=== PATIENT | male | born 1970 | race Caucasian/White ===

== ENCOUNTER 2023-09-07 10:41 | Outpatient (CLI) | payer OTHER, SELFPAY ==
--- NOTE | ~2023-09-07 | US_ITS ---
EXAMINATION: US scrotum doppler DATE: 09/07/2023 11:27 INDICATION: Right testicular pain, unspecified. TECHNIQUE: Grayscale and Doppler ultrasound images of the testes were obtained. COMPARISON: None. FINDINGS: The right testis measures 4.8 x 2.6 x 3.0 cm. The left testis measures 4.8 x 2.3 x 2.9 cm. There is normal vascular flow to both testes. The right epididymis demonstrates increased vascular fl ow, consistent with epididymitis. The left epididymis is normal with normal vascular flow. There is n o varicocele or hydrocele. There is a 6 mm scrotolith on the right. IMPRESSION: 1. Right-sided epididymitis. Reviewed, dictated and finalized at location A.
== END 2023-09-07 10:42 ==
PROVIDERS: PCP Family Medicine; Visit Provider Family Medicine
DX: N50.819 Testicular pain, unspecified (principal); N45.1 Epididymitis
CPT/HCPCS: 76870; 93976

== ENCOUNTER 2023-11-22 14:50 | Outpatient (CLI) | payer OTHER, SELFPAY ==
--- NOTE | ~2023-11-22 | XR_ITS ---
Lumbosacral Spine: AP, oblique, and lateral views Clinical History: Pain Findings: The normal lordotic curve is maintained. There is mild chronic anterior wedging deformity o f T12 and L1.. The intervertebral disc spaces are preserved. Moderate facet arthropathy. The sacroil iac joints are normally outlined. 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 Moderate facet arthropathy. Reviewed, dictated and finalized at location . 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 Moderate facet arthropathy.
== END 2023-11-22 14:51 ==
LOC: GOSHIMG 14:51
PROVIDERS: PCP Family Medicine; Visit Provider Family Medicine
DX: M54.50 Low back pain, unspecified (principal)
CPT/HCPCS: 72110

== ENCOUNTER 2023-11-24 08:21 | Outpatient (CLI) | payer OTHER, SELFPAY ==
[2023-11-24 14:31] LABS: Hematocrit 46.1 % (42.0-52.0); Hemoglobin 15.7 g/dL (14.0-18.0); Mean Corpuscular HGB Conc 34.1 g/dl (32-36); Mean Platelet Volume 10.6 fl (7.4-10.4); Platelet Count Result 222 k/mm3 (150-375); Red Blood Count 5.24 M/mm3 (4.6-6.20); Red Cell Distribution Width 12.5 % (11.5-14.5); White Blood Count 6.6 K/mm3 (4.5-10.0)
[2023-11-24 15:35] LABS: Alanine Aminotransferase 36 U/L (6-50); Albumin Level 4.6 g/dL (3.5-5.1); Alkaline Phosphatase 72 U/L (38-126); Anion Gap 8 mmol/L (4-12); Aspartate Amino Transferase 43 U/L (17-59); Bilirubin,Total 0.7 mg/dL (0.2-1.3); Blood Urea Nitrogen 17 mg/dL (9-20); Calcium 9.7 mg/dL (8.4-10.2); Carbon Dioxide 28 mmol/L (22-30); Chloride 102 mmol/L (98-107); Cholesterol 291 mg/dL (0-200); Estimated Glomerular Filt Rate > 60; Glucose 132 mg/dL (65-110); HDL Direct 41 mg/dL; Potassium 4.5 mmol/L (3.4-5.0); Sodium 138 mmol/L (137-145); Triglycerides 522 mg/dL (<150)
[2023-11-24 15:46] LABS: LDL Cholesterol Direct 107 mg/dL
[2023-11-24 18:08] LABS: Hemoglobin A1C 6.7 % (<5.7)
== END 2023-11-24 08:22 | disposition home or self-care (01) ==
PROVIDERS: PCP Family Medicine; Visit Provider Family Medicine
DX: E11.9 Type 2 diabetes mellitus without complications (principal); E66.9 Obesity, unspecified; M19.90 Unspecified osteoarthritis, unspecified site; Z79.899 Other long term (current) drug therapy
CPT/HCPCS: 36415; 80053; 80061; 83036; 84443; 85027

== ENCOUNTER 2024-04-20 07:58 | Outpatient (CLI) | payer OTHER, SELFPAY ==
[2024-04-20 14:31] LABS: Hematocrit 46.7 % (42.0-52.0); Mean Corpuscular HGB Conc 34.3 g/dl (32-36); Mean Corpuscular Hemoglobin 30.6 pg (26-34); Mean Corpuscular Volume 89.3 fl (80-100); Mean Platelet Volume 10.6 fl (7.4-10.4); Platelet Count Result 240 k/mm3 (150-375); Red Blood Count 5.23 M/mm3 (4.6-6.20); Red Cell Distribution Width 12.3 % (11.5-14.5); White Blood Count 7.7 K/mm3 (4.5-10.0)
[2024-04-20 15:50] LABS: Alanine Aminotransferase 44 U/L (6-50); Albumin Level 4.7 g/dL (3.5-5.1); Alkaline Phosphatase 78 U/L (38-126); Anion Gap 9 mmol/L (4-12); Aspartate Amino Transferase 36 U/L (17-59); Bilirubin,Total 0.6 mg/dL (0.2-1.3); Blood Urea Nitrogen 19 mg/dL (9-20); Calcium 9.4 mg/dL (8.4-10.2); Carbon Dioxide 30 mmol/L (22-30); Chloride 99 mmol/L (98-107); Cholesterol 245 mg/dL (0-200); Estimated Glomerular Filt Rate > 60; Glucose 181 mg/dL (65-110); HDL Direct 45 mg/dL; Potassium 4.5 mmol/L (3.4-5.0); Sodium 138 mmol/L (137-145); Triglycerides 480 mg/dL (<150)
[2024-04-20 16:02] LABS: LDL Cholesterol Direct 78 mg/dL
[2024-04-20 16:22] LABS: Prostate Specific Antigen 1.7 ng/mL (< OR = 4.0)
[2024-04-20 17:26] LABS: Hemoglobin A1C 7.5 % (<5.7)
== END 2024-04-20 07:59 | disposition home or self-care (01) ==
LOC: ANHGOSHLAB 07:59
PROVIDERS: PCP Family Medicine; Visit Provider Family Medicine
DX: E11.9 Type 2 diabetes mellitus without complications (principal); E66.9 Obesity, unspecified; E78.5 Hyperlipidemia, unspecified; Z12.5 Encounter for screening for malignant neoplasm of prostate; Z79.899 Other long term (current) drug therapy
CPT/HCPCS: 36415; 80053; 80061; 83036; 84153; 84443; 85027; G0103

== ENCOUNTER 2024-08-24 07:56 | Outpatient (CLI) | payer OTHER, SELFPAY ==
--- OUTSIDE RECORDS SUMMARY | 2024-08-24 08:06 | XMS_ITS | Data Portability ---
Author Organization [facility], Main Office Address [address] [place] [address] Assessment No assessment recorded. Plan of Treatment Reminders Order Date Submit Date Provider Last Modified By Organization Details Last Modified Time Details Appointments None recorded. Lab CBC w/ auto diff 2023 024 [email or web address] Not available 4 08:37:23 HbA1c (hemoglobin A1c), blood 2023 024 [email or web address] Not available 4 08:37:23 BMP, serum or plasma 2023 024 [email or web address] Not available 4 08:37:23 lipid panel, serum 2023 024 [email or web address] Not available 4 08:37:23 hepatic function panel, serum 2023 024 [email or web address] Not available 4 08:37:23 Referral physical therapist referral - cervical traction and modalities 2022 023 [email or web address] [facility], [address], [place], [address], 3 15:32:56 Procedures None recorded. Surgeries None recorded. Imaging XR, shoulder, 2 or more view 2022 023 [email or web address] [facility], [address], [place], [address], 3 15:45:58 Medication Orders sertraline 50 mg tablet 2023 024 [facility] #[id number], [address] [facility] [address] [place] [address], [id number], 4 12:27:48 Ozempic 1 mg/dose (4 mg/3 mL) subcutaneou s pen injector [address] [facility] #[id number], [address] [place] [address], [id number], 4 11:36:16 Ozempic 0.25 mg or 0.5 mg (2 mg/1.5 mL) subcutaneou s pen injector [address] [facility]41600, [address], [id number], 4 08:53:34 Medrol (Jay) 4 mg tablets in a dose pack [address] [employer] [facility] #00143, [address] [facility] [address] [place] [address], [id number], 3 08:06:52 Patient TargetsNo targets recorded. Patient InstructionsNo instructions recorded. Reason for Referral Physical Therapist Referral for Cervical radiculopathy cervical traction and modalities Referring Physician: Cj Quarles, Orthopedic Surgery, Encounter Date: 12/21/2022 Results Created Date Observation Date Name Description Value Unit Range Abnormal Flag Note LastModifiedBy Organization Detail LastModifiedTime 05/22/2005/22/2023 LIPID PANEL , [place] cholesterol, total 367 mg/dL <200 high Not Available [facility] [address] [place], [address], 05/22/2023 06:29:21 05/22/20 23 05/22/2023 LIPID PANEL , [place] HDL cholesterol 43 mg/dL > or = 40 normal Not Available [facility] [address] [address] [place], [address], 05/22/2023 06:29:21 05/22/20 23 05/22/2023 LIPID PANEL , [place] triglyceride s 746 mg/dL <150 high If a non-f astin g speci men was colle cted, consi greg repea t trigl yceri de testi ng on a fasti ng speci men if clini kaveh indic ated. Bryn humphrey et al. J. of Clin. Lipid ol. 2015; 9:129 -169. There is incre ased risk of pancr eatit is when the trigl yceri de brandon ntrat ion is very high (> or = 500 mg/dL , espec ially if > or = 1000 mg/dL ). Bryn humphrey et al. J. of Clin. Lipid ol. 2015; 9:129 -169. Not Available [facility] [address] [address] [address], [place], [address], 05/22/2023 06:29:21 05/22/20 23 05/22/2023 LIPID PANEL , [place] LDL-choleste rol mg/dL _(alissa c) LDL thomas stero l not calcu lated . Trigl yceri de level s great er than 400 mg/dL inval idate calcu lated LDL resul ts. Refer ence range : <100 Carmen able range <100 mg/dL for prima ry preve ntion ; <70 mg/dL for patie nts with CHD or diabe tic patie nts with > or = 2 CHD risk facto rs. LDL-C is now calcu lated using the Krissy n-Hop kins calcu latio n, which is a valid ated novel metho d provi peyman jesus r accur acy than the Fried na equat ion in the estim ation of LDL-C . Krissy sewell SS et al. KAYCEE. 2013; 310(1 9): 2061- 2068 (http ://ed ucati on.Qu estDi ACKme Networksos tics. com/f aq/FA Q164) Not Available [address] [address] [place], [address], 05/22/2023 06:29:21 05/22/20 23 05/22/2023 LIPID PANEL , [place] chol/HDLC ratio 8.5 (calc ) <5.0 high Not Available [facility] [address] [address] [place], [address], 05/22/2023 06:29:21 05/22/20 23 05/22/2023 LIPID PANEL , [place] non HDL cholesterol 324 mg/dL _(alissa c) <130 high Non-H DL level > or = 220 is very high and may indic ate [place] ic famil ial hyper thomas stero lemia (FH). Clini alissa asses sment and measu remen t of blood lipid level s shoul d be consi dered for all first -degr ee relat vaishnavi of patie nts with an FH diagn osis. For patie nts with diabe phillip plus 1 major ASCVD risk facto r, treat ing to a non-H DL-C goal of <100 mg/dL (LDL- C of <70 mg/dL ) is consi dered a thera peuti c optio n. Not Available [address] [address] [place], [address], 05/22/2023 06:29:21 05/22/20 23 05/22/2023 BASIC METAB OLIC PANEL glucose 248 mg/dL 65-99 high Fasti ng refer ence inter kassidy For someo ne witho ut known diabe phillip, a gluco se value >125 mg/dL indic ates that they may have diabe phillip and this shoul d be confi rmed with a follo w-up test. Not Available [facility] [address] [address] [place], [address], 05/22/2023 06:29:23 05/22/20 23 05/22/2023 BASIC METAB OLIC PANEL urea nitrogen (BUN) 23 mg/dL 7-25 normal Not Available [facility] [address] [address] [place], [address], 05/22/2023 06:29:23 05/22/20 23 05/22/2023 BASIC METAB OLIC PANEL creatinine 1.04 mg/dL 0.70-1 .30 normal Not Available [address], [address], 05/22/2023 06:29:23 05/22/20 23 05/22/2023 BASIC METAB OLIC PANEL eGFR 87 mL/mi n/1.7 3m2 > or = 60 normal Not Available [address], [address], 05/22/2023 06:29:23 05/22/20 23 05/22/2023 BASIC METAB OLIC PANEL BUN/creatini ne ratio SEE NOTE: (calc ) 6-22 Not Repor lyudmila: BUN and Creat inine are withi n refer ence range . Not Available [address], [address], 05/22/2023 06:29:23 05/22/20 23 05/22/2023 BASIC METAB OLIC PANEL sodium 138 mmol/ L 135-14 6 normal Not Available [address], [address], 05/22/2023 06:29:23 05/22/20 23 05/22/2023 BASIC METAB OLIC PANEL potassium 4.6 mmol/ L 3.5-5. 3 normal Not Available [address], [address], 05/22/2023 06:29:23 05/22/20 23 05/22/2023 BASIC METAB OLIC PANEL chloride 101 mmol/ L 98-110 normal Not Available [address], [address], 05/22/2023 06:29:23 05/22/20 23 05/22/2023 BASIC METAB OLIC PANEL carbon dioxide 28 mmol/ L 20-32 normal Not Available [facility] [address] [address], [place], [address], 05/22/2023 06:29:23 05/22/20 23 05/22/2023 BASIC METAB OLIC PANEL calcium 9.3 mg/dL 8.6-10 .3 normal Not Available [facility] [address] [address], [place], [address], 05/22/2023 06:29:23 05/22/20 23 05/22/2023 CLIEN T EDUCA TION TRACK ING client education tracking The Requi sitio n we recei arya did not inclu de a [facility] accou nt numbe r. To preve nt delay s in testi ng and proce ssing of your order s pleas e provi de the follo wing infor matio n with every order submi tted: [facility] acc[facility] nt numbe r and accou nt name Clien t addre ss Clien t phone and fax numbe r NPI numbe r of order ing physi dakota along with the physi dakota name. Not Available [facility] [address] [address], [place], [address], 05/22/2023 06:29:24 05/22/20 23 05/22/2023 HEMOG LOBIN A1C hemoglobin A1C 9.1 %_of_ total _HGB <5.7 high For someo ne witho ut known diabe phillip, a hemog lobin A1c value of 6.5% or great er indic ates that they may have diabe phillip and this shoul d be confi rmed with a follo w-up test. For someo ne with known diabe phillip, a value <7% indic ates that their diabe phillip is well contr olled and a value great er than or equal to 7% indic ates subop timal contr ol. A1c targe ts shoul d be indiv idual ized based on durat ion of diabe phillip, age, comor bid condi tions , and other consi derat ions. Curre ntly, no conse nsus exist s regar ding use of hemog lobin A1c for diagn osis of diabe phillip for child jenniffer. NO COLLE CTION DATE RECEI ARYA. WE HAVE USED THE DATE THE SPECI MEN WAS RECEI ARYA BY THIS LABOR ATORY THE COLLE CTION DATE. IF THIS IS INCOR RECT, PLEAS E CONTA CT CLIEN T SERVI NATY. PHONE DARIELE R: [phone] Not Available [facility] [address] [address], [place], [address], 05/22/2023 06:29:24 12/22/19 23 XR, shoul greg, 2 or more view No observ ation record ed. [email or web address] [facility] [place] [address], [place], [address], 12/21/2022 15:45:57 Result Notes None recorded. Problems Name Problem SNOMED Code Status Onset Date Resolution Date Notes Provider Name and Address Organization Details Recorded Time Abdominal pain 84454887 Active Not Available [facility] 3 16:28:40 Viral disease 68827797 Active Not Available [facility] 3 16:28:40 Dehydratio n 81400467 Active Not Available [facility] 3 16:28:40 Hematochez ia 365807565 Active Not Available [facility] 3 16:28:40 Vomiting 519351994 Active Not Available [facility] 3 16:28:40 Nausea 482787249 Active Not Available [facility] 3 16:28:40 Hypogonadi sm 67899197 Active Not Available [facility] 3 16:28:40 Upper respirator y infection 29083977 Active Not Available [facility] 3 16:28:40 Hyperlipid emia 92304751 Active 2016 Not Available [facility] 3 16:28:40 Tinea pedis 6507091 Active Not Available [facility] 3 16:28:40 Diarrhea 42864068 Active Not Available [facility] 3 16:28:40 Hyperglyce caroline 91492740 Active 2016 Not Available [facility] 3 16:28:40 Fatigue 98250278 Active Not Available [facility] 3 16:28:40 Pain of right shoulder joint 8054464700200 9100 Active 2022 Not Available [facility] 3 16:28:40 Cervical radiculopa thy 55604893 Active 2022 Not Available [facility] 3 16:28:40 Type 2 diabetes mellitus without complicati on 909553061 Active 2022 Kristy Quinonez MD [address], [place], [address] , [employer] 3 08:17:13 Elevated blood-pres sure reading without diagnosis of hypertensi on 074831257 Active 2022 Kristy Quinonez MD [address], [place], [address] , [employer] 3 08:22:22 Pain in testicle 77882942 Active 2023 Kristy Quinonez MD [address], [place], [address] , [employer] 4 13:19:11 Problem Notes None recorded. Procedures Surgical History None recorded. Imaging Results Imaging Date Name Status LastModified by Organiz ation Details LastModified Time 12/21/2022 XR, shoulder, 2 or more view completed [email or web address] [facility] [place] [address], [place], [address], 12/21/2022 15:45:57 Procedure Notes None recorded. Medical Equipment None Reported. Allergies Allergen ID Allergen Name Allergen Category Reaction Reaction Severity Criticality Documentation Date Start Date Code Code System Note Provider Name and Address Organization Details Recorded Time tetracycl ine medicatio n hives Not available Not available 08/11/2022 52392 RxNorm Not Available [facility] 3 08:52:38 83192 erythromy [place] medicatio n headache Not available Not available 08/11/2022 4053 RxNorm Not Available [facility] 3 08:52:38 Medications Name Sig Start Date Stop Date Status Note LastModified by Organization Details LastModified Time Singulair 10 mg tablet Take 1 tablet every day by oral route in the evening for 30 days. 12/13 completed Not Available Not Available Not Available cyclobenz aprine 10 mg tablet TK 1 T PO QHS PRN 12/21 completed Not Available Not Available Not Available cetirizin e 10 mg tablet TK 1 T PO QD PRN 07/01 completed Not Available Not Available Not Available ibuprofen 800 mg tablet TK 1 T PO Q 8 H PRF PAIN 12/21 completed Not Available Not Available Not Available hydrocodo ne 5 mg-acetam inophen 325 mg tablet Take 1 tablet every 6 hours by oral route as needed. active Not Available Not Available No t Available prednison e 20 mg tablet TAKE 2 TABLETS BY MOUTH EVERY DAY WITH FOOD FOR 5 DAYS active Not Available Not Available No t Available sertralin e 100 mg tablet 1/2 tab po qday with food x 2 weeks then increase to 1 po qday active Not Available Not Available No t Available tramadol 50 mg tablet TK 1 T PO Q 6 H PRN 07/01 completed Not Available Not Available Not Available amoxicill in 875 mg tablet Take 1 tablet every 12 hours by oral route with meals for 7 days. active Not Available Not Available No t Available OneTouch Ultra Test strips active Not Available Not Available Not Available benzonata te 100 mg capsule TK 1 C PO Q 8 H PRN 11/16 completed Not Available Not Available Not Available oseltamiv ir 75 mg capsule TK 1 C PO BID FOR 5 DAYS 08/31 completed Not Available Not Available Not Available prednison e 50 mg tablet TK 1 T PO QD FOR 5 DAYS 11/16 completed Not Available Not Available Not Available polymyxin B sulfate 10,000 unit-trim ethoprim 1 mg/mL eye drops INT 1 GTT IN OD Q 6 H 11/16 completed Not Available Not Available Not Available diclofena c sodium 75 mg tablet,de layed release TAKE 1 TABLET BY MOUTH TWICE DAILY NEEDED 12/21 completed Not Available Not Available Not Available methylpre dnisolone 4 mg tablets in a dose pack FOLLOW PACKAGE DIRECTIO NS 05/23 completed Not Available Not Available Not Available ketoconaz ole 2 % topical cream Apply cream once per day. active Not Available Not Available No t Available fluticaso ne propionat e 50 mcg/actua tion nasal spray,matthias pension active Not Available Not Available Not Available metformin ER 500 mg tablet,ex tended release 24 hr TK 1 T PO QD WITH DINNER 12/21 completed GI s/e Not Available Not Available Not Available sertralin e 50 mg tablet TAKE 1 TABLET BY MOUTH EVERY DAY active Not Available Not Available No t Available Testim 50 mg/5 gram (1 %) transderm al gel MURTAZA 2 TUBES DAILY active Not Available Not Available No t Available rosuvasta tin 10 mg tablet TK 1 T PO QD 12/21 completed Hot flashes Not Available Not Available Not Available ibuprofen prn 12/21 completed Not Available Not Available Not Available OneTouch Ultra2 Meter kit 07/01 completed Not Available Not Available Not Available fenofibra te nanocryst allized 145 mg tablet active Not Available Not Available Not Available AndroGel 20.25 mg/1.25 gram per pump act. (1.62 %) transderm al gel Apply by transder mal route. Apply one pump press to each shoulder once daily as directed . 08/23 completed Not Available Not Available Not Available Androderm 2 mg/24 hour transderm al 24 hour patch Apply 1 patch every day by transder mal route as directed for 30 days. 12/21 completed Not Available Not Available Not Available Naftin 2 % topical cream active Not Available Not Available Not Available OneTouch Delica Lancets 30 gauge TEST DAILY UTD 07/01 completed Not Available Not Available Not Available Ozempic 0.25 mg or 0.5 mg (2 mg/1.5 mL) subcutane ous pen injector 0.5 mg sc qweek 09/07 completed Not Available Not Available Not Available OneTouch Ultra Blue Test Strip TEST ONCE DAILY UTD 07/01 completed Not Available Not Available Not Available Ozempic 1 mg/dose (4 mg/3 mL) subcutane ous pen injector INJECT 1MG UNDER THE SKIN ONCE WEEKLY 10/02 completed Not Available Not Available Not Available Ozempic 2 mg/dose (8 mg/3 mL) subcutane ous pen injector INJECT 2 MG UNDER THE SKIN ONCE WEEKLY active Not Available Not Available No t Available Ozempic 0.25 mg or 0.5 mg (2 mg/3 mL) subcutane ous pen injector INJECT 0.5 MG UNDER THE SKIN EVERY WEEK 09/07 completed Not Available Not Available Not Available Vitals Date Recorded Body height Body mass index (BMI) Body weight Provider Name and Address Organization Details Last Updated DateTime 12/21/2022 165.1 cm 30.8 kg/m2 86084.59 g Barbara Paez ATC L [facility] 12/21/2022 14:56:05 Date Recorded Body height Provider Name an d Address Organization Details Last Updated DateTime 05/20/2023 165.1 cm Dianelys Ortez LPN [facility] 05/20/2023 08:25:54 Date Recorded Body height Body mass index (BMI) Body weight Body temperature Oxygen saturation Oxygen saturation in Arterial blood by Pulse oximetry Heart rate Systolic blood pressure Diastolic blood pressure Provider Name and Address Organization Details Last Updated DateTime 3 165.1 cm 32.3 kg/m2 41553.9 2 g 98 [degF] 98 % 98 % 71 /min 140 mm[Hg] 98 mm[Hg] Chiara Streeter RN [facility] 3 08:03:30 Date Recorded Body height Body mass index (BMI) Body weight Body temperature Heart rate Oxygen saturation Oxygen saturation in Arterial blood by Pulse oximetry Systolic blood pressure Diastolic blood pressure Provider Name and Address Organization Details Last Updated DateTime 4 165.1 cm 31.6 kg/m2 90359.5 5 g 97.7 [degF] 75 /min 98 % 98 % 130 mm[Hg] 90 mm[Hg] Chiara Streeter RN [facility] 4 08:48:12 Date Recorded Body height Body mass index (BMI) Body weight Heart rate Oxygen saturation Oxygen saturation in Arterial blood by Pulse oximetry Systolic blood pressure Diastolic blood pressure Provider Name and Address Organization Details Last Updated DateTime 4 165.1 cm 31.1 kg/m2 22863.7 7 g 81 /min 97 % 97 % 120 mm[Hg] 80 mm[Hg] Chiara Streeter RN [facility] 12:13:03 Date Recorded Body temperature Provider Name a nd Address Organization Details Last Updated DateTime 10/25/2023 97.6 [degF] Kristy Quinonez MD [address] [facility], [facility] [address], [place], [address], [facility] 10/25/2023 12:15:04 Social History Question Answer Notes LastModified by Organizat ion Details LastModified Time Tobacco Smoking Status Never Smoker Not Available [facility] 08/11/2022 08:43:34 Do You Have An Advance Directive? No [id number] Information not available 08/11/2022 What Is Your Level Of Alcohol Consumption? Occasional [id number] Information not available 08/11/2022 What Is Your Level Of Caffeine Consumption? Occasional [id number] Information not available 08/11/2022 How Much Tobacco Do You Chew? None [id number] Information not available 08/11/2022 In The 14 Days Before Symptom Onset, Have You Had Close Contact With A Laboratory-confir med COVID-19 While That Case Was Ill? No [id number] Information not available 08/11/2022 In The 14 Days Before Symptom Onset, Have You Had Close Contact With A Person Who Is Under Investigation For COVID-19 While That Person Was Ill? No [id number] Information not available 08/11/2022 What Type Of Diet Are You Following? VEGETARIAN [id number] Information not available 08/11/2022 Which Illicit Or Recreational Drugs Have You Used? None [id number] Information not available 08/11/2022 Do You Or Have You Ever Used E-cigarettes Or Vape? 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 No [id number] Information not available 08/11/2022 What Was The Date Of Your Most Recent Tobacco Screening? 10/25/2023 [email or web address] Information not available 10/25/2023 Do You Or Have You Ever Used Smokeless Tobacco? Never Used Smokeless Tobacco MIGRATION.[id number] Information not available 08/11/2022 How Much Tobacco Do You Smoke? No [id number] Information not available 08/11/2022 Do You Use Sunscreen Routinely? Yes [id number] Information not available 08/11/2022 Sex: Unknown Functional Status Question Answer Note LastModified by Organizat ion Details LastModified Time What is your exercise level? Moderate [id number] Information not available 08/11/2022 Mental Status None recorded. Family History Relationship Description Onset Age of this Age Resolved Age Notes LastModified by Organization Details LastModified Time Mother Diabetes mellitus [id number] Not available 08/11/2022 08:43:43 Mother Insomnia [id number].925 [id number] Not available 08/11/2022 08:43:43 Maternal Grandmother Diabetes mellitus [id number] [id number] Not available 08/11/2022 08:43:43 Maternal Grandfather Diabetes mellitus [id number].835 [id number] Not available 08/11/2022 08:43:43 Maternal Grandfather Insomnia MIGRATION.528 [id number] Not available 08/11/2022 08:43:43 Father Hyperlipidem ia MIGRATION.830 [id number] Not available 08/11/2022 08:43:43 Father Prostate specific antigen above reference range [id number].783 [id number] Not available 08/11/2022 08:43:43 Maternal Aunt Insomnia MIGRATION .[id number] Not available 08/11/2022 08:43:43 Maternal Uncle Insomnia MIGRATION.[id number] Not available 08/11/2022 08:43:43 Maternal Grandmother Family history of malignant neoplasm [email or web address] Not available 12/11 14:57:08 Medical History Condition Response BLINDNESS N RHEUMATIC FEVER N BLADDER PROBLEMS N KIDNEY STONES N MRSA N OTHER # 1 N POLIO N LUNG DISEASE/DISORDER N RADIATION / CHEMOTHERAPY N COPD N Other # 2 N BLOOD DISEASES N SURGERY N EAR OR HEARING PROBLEMS N MUMPS N BOWEL PROBLEMS Y DEPRESSION (INCLUDING POST ) N FEMALE PROBLEMS / INFECTIONS N STROKE/TIA N THYROID DISEASE N ULCERS N BENIGN PROSTATIC HYPERPLASIA N MEASLES N CERVICALGIA N TB SKIN TEST N MYOCARDIAL INFARCTION N PARAPELGIA N OBESITY N GERD/NAUSEA Y ANEURYSM N URINARY/BLADDER/KIDNEY PROBLEMS N CORONARY ARTERY DISEASE (CAD) N MENIERE'S DISEASE N ADDICTION CONCERNS N ENDOMETRIOSIS N USE OF BLOOD THINNERS N SKIN PROBLEMS N EMPHYSEMA N GASTROINTESTINAL DISORDER N MUSCLE,JOINT OR BONE PROBLEMS N GASTROINTESTINAL BLEEDING N BLOOD CLOTS N ASTHMA N CATARACTS N ERECTILE DYSFUNCTION N GI PROBLEMS Y CHF N Low Testosterone N NEUROPATHY N INFERTILITY N AIDS/HIV N FRACTURES N CHEMOTHERAPY / RADIATION N VISION/EYE PROBLEMS N LIVER DISEASE N MALE HYPOGONADISM N HYPERTENSION N TOURETTE'S N ANXIETY DISORDER N BLOOD TRANSFUSION N ANEMIA/BLOOD DISORDER N CHRONIC EAR INFECTIONS N BRONCHITIS N TUBERCULOSIS N GLAUCOMA N FOOT PROBLEM N DIVERTICULITIS N SLEEP APNEA N CHICKENPOX N ALLERGIES/HAYFEVER N INFECTIOUS DISEASE N PROSTATE N HEART ARRHYTHMIA N INSOMNIA N HIGH CHOLESTEROL / HYPERLIPIDEMIA Y EYE PROBLEMS N HYPERTHYROIDISM N EATING DISORDER N EDEMA N CHRONIC PAIN SYNDROME N CAROTID BLOCKAGE N CONSTIPATION N BACK / NECK PROBLEMS N HAVE YOU BEEN HOSPITALIZED OR SEEN IN [facility] IN THE PAST YEAR ? N ATHEROSCLEROSIS N BREAST PROBLEMS N DIALYSIS N ECZEMA N FIBROMYALGIA N OSTEOPOROSIS N ARTHRITIS Y NO SIGNIFICANT PAST MEDICAL HISTORY N APPENDICITIS N DIABETES, TYPE Y BAD TEETH N HEARTBURN / REFLUX N ADD/ADHD N AUTISM SPECTRUM DISORDER (ASD) N HEPATITIS / LIVER DISEASE N PULMONARY DISEASE N GOUT N SLEEP DISORDER N ALZHEIMER'S DISEASE N PAIN N DEMENTIA N HERPES N SEIZURES/EPILEPSY N HEADACHES/MIGRAINES N VASCULAR DISEASE N PACEMAKER N DIZZINESS N HEART DISEASE/HEART PROBLEMS N KIDNEY DISEASE N SCARLET FEVER N MULTIPLE SCLEROSIS N DEVELOPMENTAL OR BEHAVIORAL DISORDERS N MENTAL DISORDER/ILLNESS N CANCER: SPECIFY N CARDIAC ARRHYTHMIA N PNEUMONIA N ATRIAL FIBRILLATION N Gall Stones N PULMONARY EMBOLISM N AUTOIMMUNE DISEASE N Immunizations Vaccine Type Date Status Note Provider Nam e and Address Organization Details Recorded Time Influenza, split virus, quadrivalent, PF 3 completed Radhika Malin CMA null, [place] [facility] 05/23/2023 08:33:01 COVID-19, mRNA, LNP-S, PF, 30 mcg/0.3 mL dose 1 completed Not Available [facility] 03/12/2023 16:28:41 COVID-19, mRNA, LNP-S, PF, 30 mcg/0.3 mL dose 1 completed Not Available [facility] 03/12/2023 16:28:41 Influenza, split virus, trivalent, preservative 4 completed Not Available [facility] 03/12/2023 16:28:41 Influenza, split virus, quadrivalent, PF 0 completed Not Available [facility] 03/12/2023 16:28:41 Past Encounters Encounter ID Performer Location Encounter Start Date Encounter Closed Date Diagnosis/Indication Diagnosis SNOMED-CT Code Diagnosis ICD10 Code Diagnosis Note [id number] [facility] Primary Care [place] [address] [facility] [address] [place] [address] 11/17/2020 00:00:00 11/17/2020 08:28:39 [id number] [facility] Care [place] [address] [facility] [address] [place] [address] 11/24/2020 00:00:00 12/02/2020 18:36:23 [id number] _AMOR_M IGRATION_ DEFAULT_1 _1 , 12/31/2020 00:00:00 12/31/2020 10:56:24 [id number] Kristy Quinonez MD [facility] Primary Care [place] [address] [facility] [address] [place] [address] 10/18/2022 07:58:23 10/18/2022 08:31:34 Adult health examination 344521359 Z00.00 Z12.5 Colonoscop y normal 04/20/21 repeat 10 yearsFlu vaccine yearlyShin gles vaccine recommende dCovid vaccine per cdc guidelines Fasting labs ordered Hyperlipidemia 17288805 E78.5 Hyperglycemia 75840065 R 73.9 Pain of ri ght shoulder joint [id number] 6634428 M25.511 diclofenac bid with food, avoid other nsaidsPT referralf/ u in 6 weeks if no improvemen t [id number] SAHARA Pisano [facility] Primary [place] [address] [facility] [address] [place] [address] 11/19/2022 08:23:55 11/19/2022 08:36:52 [id number] Kristy Quinonez MD [facility] Primary [place] [address] [facility] [address] [place] [address] 11/29/2022 08:05:15 11/29/2022 08:40:27 Pain of right shoulder joint [id number] 6991195 M25.511 still has persistent numbnesspa in is improved?n malia vs shoulderor tho referral givenok to stay off diclofenac since he did not notice any significan t improvemen t Hyperlipidemia 86107621 E78.5 Hyperglycemia 81878494 R 73.9 [id number] Cj Quarles MD [facility] [place] [address] [place] [address] 12/21/2022 14:47:52 12/21/2022 15:21:33 Pain of right shoulder joint 3723012505 1000816 M25.511 Cervical radiculopathy 69440445 M54.12 patient has a C6 cervical radiculopa thy we will send him to therapy and put him on a Medrol Dosepak has a 90% chance of improvemen t. If it does not improve I will have him come in to see Dr. Zacarias to consider x-rays of the cervical spine and possibilit y of a referral to [facility] for a block if he has in that 10% the do not improve. Might also have to consider an MRI scan dependent upon his symptomato logy at that point. [id number] PAOLO Valentin [facility] Primary Care [address] [place] [address] 05/20/2023 08:06:41 05/20/2023 08:13:41 [id number] Kristy Quinonez MD [facility] Primary Care [address] [place] [address] 05/23/2023 07:59:22 05/23/2023 08:31:57 Type 2 diabetes mellitus without complication 698661940 E11.9 not in good control with lifestyle changeshas failed metformin- due to GI s/etrial of ozempic 0.25 mg sc qweekrevie wed potential med s/e and how to use properlypl an to increase monthly as toleratedn eed to plan statin and ANGELA/ARB in near future, will start one thing at time Elevated blood-pressure reading without diagnosis of hypertension 597046805 R03.0 will monitor closely Hyperlipidemia 69870232 E78.5 reviewed resultspla n trial of statin at next appt, pt wants to start one med at a time Administra tion of influenza vaccine 13696030 Z23 [id number] Kristy Quinonez MD [facility] Primary Care [facility] [address] [facility] [address] [place] [address] 09/08/2023 08:42:40 09/08/2023 09:08:28 Type 2 diabetes mellitus without complication 792069457 E11.9 not in good control with lifestyle changeshas failed metformin- due to GI s/etrial of ozempic 0.25 mg sc qweekrevie wed potential med s/e and how to use properlypl an to increase monthly as toleratedn eed to plan statin and ANGELA/ARB in near future, will start one thing at time 09/08/23: Increase 1 mg ozempicaga in plan statin and angela/arb in near futurerech malia labs prior to next appt Elevated blood-pressure reading without diagnosis of hypertension 126977963 R03.0 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 Primary Care [facility] [address] [facility] [address] [place] [address] 10/25/2023 12:08:13 10/25/2023 12:29:21 Adult health examination 319547342 Z00.00 Z12.5 Colonoscop y normal 04/20/21 repeat 10 yearsFlu vaccine yearlyShin gles vaccine recommende dCovid vaccine per cdc guidelines Will get fasting labs with new PCP Type 2 bridgette betes mellitus without complication 224863064 E11.9 not in good control with lifestyle changeshas failed metformin- due to GI s/etrial of ozempic 0.25 mg sc qweekrevie wed potential med s/e and how to use properlypl an to increase monthly as toleratedn eed to plan statin and ANGELA/ARB in near future, will start one thing at time 09/08/23: Increase 1 mg ozempicaga in plan statin and angela/arb in near future 10/25/23: continue ozempic 2 mg sc qweekwill get fasting labs with new PCPplan statin and ARB in near future Renewal of prescription 911474418 Z76.0 Health Concerns Section Related Observation LastModified by Organization Valentin jaimes LastModified Time None Recorded Concern Status LastModified by Organization Details LastModified Time None Recorded Advance Directives Directive N: Payers Encounter Date Sequence Insurance Name Policy Number Policy Grayson Covered Member ID Grayson Member ID Guarantor Name 12/21/2022 1 [employer] [id number] [place] [id number] [place] 05/20/2023 1 [employer] [id number] [place] [id number] [place] 05/23/2023 1 [employer] [id number] [place] [id number] [place] 09/08/2023 1 [employer] [id number] [place] [id number] [place] 10/25/[address] 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 No history of any recent illness. Cj Quarles MD [address] [place] [address], [facility] [address], [place], [address], [facility] [employer] 12/21/2022 15:47:00 05/23/2023 text/html Here to f/u on labs. Reviewed results-elevated Tchol and triglycerides, and a1c 9.9. No chest pain, no sob. His is going to have a temporary weight loss procedure (balloon) for 6 months. He wants to avoid meds and make lifestyle changes. He has had some improvement in his pain in his shoulder but he continues to have numbness in his thumb. update 05/23/23: Here for f/u on diabetes and hyperlipidemia. Recent labs show no significant change in diabetes and lipids. Kristy Quinonez MD [address] [facility], [facility] [address], [place], [address], [facility] [employer] [facility] [employer] [facility] 05/23/2023 08:24:32 09/08/2023 text/html Here to f/u on labs. Reviewed results-elevated Tchol and triglycerides, and a1c 9.9. No chest pain, no sob. His is going to have a temporary weight loss procedure (balloon) for 6 months. He wants to avoid meds and make lifestyle changes. He has had some improvement in his pain in his shoulder but he continues to have numbness in his thumb. update 05/23/23: Here for f/u on diabetes and hyperlipidemia. Recent labs show no significant change in diabetes and lipids. update 09/08/23: He is tolerating ozempic 0.5 mg sc qweek and tolerating well. No home blood sugars for review. right testicle pain x 6 weeks, thought he pulled a muscle first. No redness or swelling. Pain is 1-2 out of 10 in intensity, comes and goes, feels like a nuisance, nothing makes it better or worse. Kristy Quinonez MD [address] [facility], [facility] [address], [place], [address], [employer] [facility] [employer] 09/09/2023 08:32:05 10/25/2023 text/html Here to f/u on labs. Reviewed results-elevated Tchol and triglycerides, and a1c 9.9. No chest pain, no sob. His is going to have a temporary weight loss procedure (balloon) for 6 months. He wants to avoid meds and make lifestyle changes. He has had some improvement in his pain in his shoulder but he continues to have numbness in his thumb. update 05/23/23: Here for f/u on diabetes and hyperlipidemia. Recent labs show no significant change in diabetes and lipids. update 09/08/23: He is tolerating ozempic 0.5 mg sc qweek and tolerating well. No home blood sugars for review. right testicle pain x 6 weeks, thought he pulled a muscle first. No redness or swelling. Pain is 1-2 out of 10 in intensity, comes and goes, feels like a nuisance, nothing makes it better or worse. update 10/25/23: he is on ozempic 2 mg, he is having less appetite at this dosage. He does have some heartburn the first day or two after his injection each week. Kristy Quinonez MD [address] [place] [address], [facility] [address], [place], [address], [facility] 10/30/2023 10:46:20
--- OUTSIDE RECORDS SUMMARY | 2024-08-24 08:06 | XMS_ITS | Clinical Summary ---
Author Organization [facility] Address [address] [place] [address] Care Team Providers Care Foreign Diplomat Name Role Phone Unavailable Primary Care Provider Unavailabl e Social History Tobacco Use Types Packs/Day Years Used Date Smoking Tobacco: Never Assessed Sex and Gender Information Value Date Recorded Sex Assigned at Not on file Legal Sex Male 9:33 PM CDT Gender Identity Not on file Sexual Orientation Not on file Last Filed Vital Signs Vital Sign Reading Time Taken Comments Blood Pressure 138/92 02/04/2016 8:42 AM CDT Pulse 82 02/04/2016 8:42 AM CDT Temperature - - Respiratory Rate - - Oxygen Saturation - - Inhaled Oxygen Concentration - - Weight 86.2 kg (190 lb) 02/04/2016 8:42 AM CDT Height 165.1 cm (5' 5 ) 02/04/2016 8:42 AM CDT Body Mass Index 31.62 02/04/2016 8:42 AM CDT Plan of Treatment Health Maintenance Due Date Last Done Comments Colorectal Cancer Screening Colonoscopy (10 Years) 1972 Annual Physical 02/15/1975 Hepatitis C 02/15/1990 DTaP, Tdap and Td Vaccines ( 1 - Tdap) 02/15/1991 Hepatitis B Vaccines (1 of 3 - 19+ 3-dose series) 02/15/1991 Zoster Vaccines (1 of 2) 02/15/2022 COVID-19 Vaccine ( - 2023-2 5 season) 2024 Influenza Adult (#1) 2024 Meningococcal B Vaccine Aged Out No l onger eligible based on patient's age to complete this topic Meningococcal Vaccine Aged Out No eric wen eligible based on patient's age to complete this topic Pneumococcal Vaccine: Pediat rics (0 to 5 Years) and At-Risk Patients (6 to 64 Years) Aged Out No longer eligible b ased on patient's age to complete this topic RSV Immunizations Under 20 Months Aged Out No longer eligible based on patient's age to complete this topic
--- OUTSIDE RECORDS SUMMARY | 2024-08-24 08:06 | XMS_ITS | Clinical Summary ---
Author Organization 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 Gender Identity Not on file Sexual Orientation Not on file Plan of Treatment Health Maintenance Due Date Last Done Comments Hepatitis C Virus (HCV) Screening 1972 TdaP Immunization 1972 Hepatitis B Immunization (1 of 3 - 19+ 3-dose series) 02/15/1991 Colonoscopy 02/15/2017 Colorectal Cancer Screening 02/15/2017 Cologuard 02/15/2022 Immunochemical Fecal Occult Blood 02/15/2022 Pneumococcal Immunization (5 0+ years) (1 of 1 - PCV) 02/15/2022 Zoster Immunization (1 of 2) 02/15/2022 Influenza Immunization (#1) 2024 07/10/2019 SARS-COV-2 Immunization ( - 2023-25 season) 2024 Respiratory Syncytial Virus (RSV) Immunization (Adult) (1 - 1-dose 75+ series) 02/15/2047 Meningococcal Immunization (ACWY) Aged Out No longer eligible based on patient's age to complete this topic Pneumococcal Immunization Combined Aged Out No longer eligible based on patient's age to complete this topic Rotavirus Immunization Aged Out No lo nger eligible based on patient's age to complete this topic Insurance [employer] on file
--- OUTSIDE RECORDS SUMMARY | 2024-08-24 08:06 | XMS_ITS | Patient Health Summary ---
Author Organization [facility] Address [address] [facility] [place] [address] Care Team Providers Care Glost Kiln Placer Name Role Phone Unavailable Primary Care Provider Unavailabl e Note from [facility],non-owned Affiliates and Associated Physician Practices is amultiple site organization consisting of ambulatory clinics and hospital sitesin [place], [place], [place] and [place]. This disclosure is being madepursuant to the Care Everywhere program and may not contain all information available regarding this patient. Last updated 18.[facility] Social History Tobacco Use Types Packs/Day Years Used Date Smoking Tobacco: Never Assessed Sex and Gender Information Value Date Recorded Sex Assigned at Not on file Gender Identity Not on file Sexual Orientation Not on file
--- OUTSIDE RECORDS SUMMARY | 2024-08-24 08:06 | XMS_ITS | Referral Summary ---
Author Organization [facility] Address [address] [facility] [place] [address] Care Team Providers Care Correctional Food Service Supervisor Name Role Phone Unavailable Primary Care Provider Unavailabl e Source Comments [facility],non-owned Affiliates and Associated Physician Practices is amultiple site organization consisting of ambulatory clinics and hospital sitesin [place], [place], [place] and [place]. This disclosure is being madepursuant to the Care Everywhere program and may not contain all information available regarding this patient. Last updated 18.[facility] Social History Tobacco Use Types Packs/Day Years Used Date Smoking Tobacco: Never Assessed Sex and Gender Information Value Date Recorded Sex Assigned at Not on file Gender Identity Not on file Sexual Orientation Not on file Plan of Treatment Not on file
--- OUTSIDE RECORDS SUMMARY | 2024-08-24 08:06 | XMS_ITS | Clinical Summary ---
Author Organization [facility] Address [address] [place] [address] Care Team Providers Care Process Operator Name Role Phone Unavailable Primary Care Provider Unavailabl e Source Comments [facility],non-owned Affiliates and Associated Physician Practices is amultiple site organization consisting of ambulatory clinics and hospital sitesin [place], [place], [place] and [place]. This disclosure is being madepursuant to the Care Everywhere program and may not contain all information available regarding this patient. Last updated 18.[facility] Social History Tobacco Use Types Packs/Day Years Used Date Smoking Tobacco: Never Assessed Sex and Gender Information Value Date Recorded Sex Assigned at Not on file Gender Identity Not on file Sexual Orientation Not on file Plan of Treatment Health Maintenance Due Date Last Done Comments COLOGUARD (AGES 45-75) - COL ON CA SCREENING 1972 COLON MONITORING 1972 COLONOSCOPY - COLON CA SCREENING 1972 CT COLONOGRAPHY - COLON CA SCREENING 1972 Colorectal Cancer Screening 1972 FIT - COLON CA SCREENING 1972 FLEX SIG - COLON CA SCREENING 1972 LIPID TESTING 1972 HIV SCREENING 02/15/1987 HEPATITIS C SCREENING 02/11/1990 DTAP/TDAP/TD VACCINES (1 - Tdap) 02/15/1991 HEPATITIS B VACCINE (1 of 3 - 19+ 3-dose series) 02/15/1991 PNEUMOCOCCAL VACCINE 50+ (1 of 1 - PCV) 02/15/2022 ZOSTER VACCINE (1 of 2) 02/15/2022 COVID-19 VACCINE (1 - 2023-2 5 season) 2024 INFLUENZA VACCINE (#1) 2024 DEPRESSION SCREENING 06/13/2024 HIB VACCINE Aged Out No longer eligi ble based on patient's age to complete this topic HPV VACCINE Aged Out No longer eligi ble based on patient's age to complete this topic MENINGOCOCCAL (Group B) VACC INE SHARED DECISION-MAKING Aged Out No longer eligibl e based on patient's age to complete this topic MENINGOCOCCAL GROUPS A/C/Y/W VACCINE Aged Out No longer eligible b ased on patient's age to complete this topic PNEUMOCOCCAL VACCINE Aged Out No long er eligible based on patient's age to complete this topic
[2024-08-24 18:45] LABS: Hemoglobin 15.6 g/dL (14.0-18.0); Mean Corpuscular HGB Conc 33.2 g/dl (32-36); Mean Corpuscular Hemoglobin 30.2 pg (26-34); Mean Corpuscular Volume 90.9 fl (80-100); Mean Platelet Volume 10.4 fl (7.4-10.4); Platelet Count Result 246 k/mm3 (150-375); Red Blood Count 5.17 M/mm3 (4.6-6.20); Red Cell Distribution Width 13.3 % (11.5-14.5); White Blood Count 7.4 K/mm3 (4.5-10.0)
[2024-08-24 18:47] LABS: Alanine Aminotransferase 50 U/L (6-50); Albumin Level 4.6 g/dL (3.5-5.1); Alkaline Phosphatase 87 U/L (38-126); Anion Gap 11 mmol/L (4-12); Aspartate Amino Transferase 72 U/L (17-59); Bilirubin,Total 0.8 mg/dL (0.2-1.3); Blood Urea Nitrogen 21 mg/dL (9-20); Calcium 9.4 mg/dL (8.4-10.2); Carbon Dioxide 28 mmol/L (22-30); Chloride 101 mmol/L (98-107); Cholesterol 180 mg/dL (0-200); Estimated Glomerular Filt Rate > 60; Glucose 141 mg/dL (65-110); HDL Direct 39 mg/dL; Potassium 4.6 mmol/L (3.4-5.0); Sodium 140 mmol/L (137-145); Triglycerides 295 mg/dL (<150)
[2024-08-24 18:49] LABS: Hemoglobin A1C 6.6 % (<5.7)
[2024-08-24 18:57] LABS: Creatinine Urine 84.6 mg/dL
[2024-08-24 18:58] LABS: LDL Cholesterol Direct 68 mg/dL
[2024-08-24 19:23] LABS: MALB Creatinine Ratio < 7.1 mg/g (0-30); Microalbumin Urine Random < 6.0 mg/L (0-16.7)
== END 2024-08-24 07:57 | disposition home or self-care (01) ==
LOC: ANHGOSHLAB 07:57
PROVIDERS: PCP Family Medicine; Visit Provider Family Medicine
DX: E78.5 Hyperlipidemia, unspecified (principal); E66.9 Obesity, unspecified; Z79.899 Other long term (current) drug therapy; E11.9 Type 2 diabetes mellitus without complications
CPT/HCPCS: 36415; 80053; 80061; 82043; 83036; 84443; 85027

== ENCOUNTER 2025-02-12 07:52 | Outpatient (CLI) | payer OTHER, SELFPAY ==
--- OUTSIDE RECORDS SUMMARY | 2025-02-12 07:57 | XMS_ITS | Clinical Summary ---
Author Organization [facility] Address [address] [place] [address] Care Team Providers Care Bottle Washer Name Role Phone Unavailable Primary Care Provider Unavailabl e Source Comments [facility],non-owned Affiliates and Associated Physician Practices is amultiple site organization consisting of ambulatory clinics and hospital sitesin [place], [place], [place] and [place]. This disclosure is being madepursuant to the Care Everywhere program and may not contain all information available regarding this patient. Last updated 18.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
--- OUTSIDE RECORDS SUMMARY | 2025-02-12 07:57 | XMS_ITS | Clinical Summary ---
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 Gender Identity Not on file Sexual Orientation Not on file Plan of Treatment Health Maintenance Due Date Last Done Comments Hepatitis C Virus (HCV) Screening 1970 TdaP Immunization 1972 Hepatitis B Immunization (1 of 3 - 19+ 3-dose series) 02/15/1991 Cologuard 02/15/2017 Colonoscopy 02/15/2017 Colorectal Cancer Screening 02/15/2017 Immunochemical Fecal Occult Blood 02/15/2017 Pneumococcal Immunization (5 0+ years) (1 of 1 - PCV) 02/15/2022 Zoster Immunization (1 of 2) 02/15/2022 SARS-COV-2 Immunization (1 - season) 2024 Influenza Immunization (#1) 02/11/202506/14, 04/09/2014 Respiratory Syncytial Virus (RSV) Immunization (Adult) (1 - 1-dose 75+ series) 02/15/2047 Human Papillomavirus (HPV) Immunization Aged Out No longer eligible b ased on patient's age to complete this topic Meningococcal Immunization (ACWY) Aged Out No longer eligible b ased on patient's age to complete this topic Rotavirus Immunization Aged Out No lo nger eligible based on patient's age to complete this topic Insurance [employer] on file
--- OUTSIDE RECORDS SUMMARY | 2025-02-12 07:57 | XMS_ITS | Clinical Summary ---
Author Organization [facility] Address [address] [place] [address] Care Team Providers Care Night Shift Name Role Phone Unavailable Primary Care Provider [...] 8:42 AM CDT Height 165.1 cm (5' 5) 02/04/2016 8:42 AM CDT Body Mass Index 31.62 02/04/2016 8:42 AM CDT Plan of Treatment Health Maintenance Due Date Last Done Comments Colorectal Cancer Screening Colonoscopy (10 Years) 1972 Annual Physical 02/15/1975 Hepatitis C 02/15/1990 DTaP, Tdap and Td Vaccines ( 1 - Tdap) 02/15/1991 Hepatitis B Vaccines (1 of 3 - 19+ 3-dose series) 02/15/1991 Pneumococcal Vaccine: 50+ Ye ars (1 of 1 - PCV) 02/15/2022 Zoster Vaccines (1 of 2) 02/15/2022 COVID-19 Vaccine ( - 2023-2 5 season) 2024 Meningococcal B Vaccine Aged Out No l onger eligible based on patient's age to complete this topic Meningococcal Vaccine Aged Out No eric wen eligible based on patient's age to complete this topic RSV Immunizations Under 20 Months Aged Out No longer eligible based on patient's age to complete this topic
[2025-02-12 15:42] LABS: Hematocrit 47.7 % (42.0-52.0); Hemoglobin 16.1 g/dL (14.0-18.0); Mean Corpuscular HGB Conc 33.8 g/dl (32-36); Mean Corpuscular Hemoglobin 30.2 pg (26-34); Mean Corpuscular Volume 89.5 fl (80-100); Platelet Count Result 254 k/mm3 (150-375); Red Blood Count 5.33 M/mm3 (4.6-6.20); White Blood Count 7.7 K/mm3 (4.5-10.0)
[2025-02-12 15:51] LABS: Hemoglobin A1C 6.6 % (<5.7)
[2025-02-12 16:11] LABS: Alanine Aminotransferase 44 U/L (6-50); Albumin Level 4.7 g/dL (3.5-5.1); Alkaline Phosphatase 80 U/L (38-126); Anion Gap 10 mmol/L (4-12); Aspartate Amino Transferase 43 U/L (17-59); Bilirubin,Total 0.9 mg/dL (0.2-1.3); Calcium 9.9 mg/dL (8.4-10.2); Carbon Dioxide 27 mmol/L (22-30); Chloride 100 mmol/L (98-107); Cholesterol 237 mg/dL (0-200); Glucose 146 mg/dL (65-110); HDL Direct 41 mg/dL; Potassium 4.5 mmol/L (3.4-5.0); Sodium 137 mmol/L (137-145); Total Protein 8.0 g/dL (6.3-8.2); Triglycerides 480 mg/dL (<150)
[2025-02-12 16:23] LABS: Blood Urea Nitrogen 16 mg/dL (9-20); Estimated Glomerular Filt Rate > 60
[2025-02-12 16:48] LABS: Prostate Specific Antigen 1.7 ng/mL (< OR = 4.0); Thyroid Stimulating Hormone 1.470 uIU/mL (0.465-4.680)
== END 2025-02-12 07:53 | disposition home or self-care (01) ==
LOC: ANHGOSHLAB 07:53
PROVIDERS: PCP Family Medicine; Visit Provider Family Medicine
DX: E78.5 Hyperlipidemia, unspecified (principal); Z79.899 Other long term (current) drug therapy; E11.9 Type 2 diabetes mellitus without complications; E66.9 Obesity, unspecified; Z12.5 Encounter for screening for malignant neoplasm of prostate
CPT/HCPCS: 36415; 80053; 80061; 83036; 84153; 84443; 85027; G0103